=== PATIENT | male | born 1995 | race Caucasian/White ===

== ENCOUNTER 2017-05-29 23:21 | Emergency (ER) | payer OTHER ==
[~2017-05-29] VITALS: Ht 180.3 cm; Wt 70.0 kg
[2017-05-29 23:22] VITALS: BP 139/90; PULSE 71; RESP 16; TEMP 98.9; O2SAT 99
[2017-05-30] MEDS ORDERED: HYDR-3516 PO (00:46)
[2017-05-30] MEDS ORDERED: SSD1CRE TOPICAL (00:46)
[2017-05-30] MEDS ORDERED: IBUP1TAB7 PO (00:46)
[2017-05-30 00:48] VITALS: BP 145/82; PULSE 92; RESP 16; O2SAT 100
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
[2017-05-30] MEDS ORDERED: ACETAMINOPHEN/HYDROcodone 325 MG/5 MG TAB PO ONE (01:00)
[2017-05-30] MEDS ORDERED: IBUPROFEN 800 MG TAB PO ONE (01:00)
[2017-05-30] MEDS ORDERED: SILVER SULFADIAZINE 1% CR 50 GM JAR TOPICAL ONE (01:00)
[2017-05-30] MEDS ORDERED: TETANUS/DIPHTHERIA TOXOID ADULT 0.5 ML VIAL IM ONE (01:00)
== END 2017-05-30 01:23 | disposition home or self-care (01) ==
LOC: NEPD 23:21
DX: T22.212A Burn of second degree of left forearm, initial encounter (principal); X08.8XXA Exposure to other specified smoke, fire and flames, initial encounter; W01.0XXA Fall on same level from slipping, tripping and stumbling without subsequent striking against object, initial encounter; Y92.511 Restaurant or cafe as the place of occurrence of the external cause; Z23 Encounter for immunization
CPT/HCPCS: 16020; 90471; 90714